=== PATIENT | female | born 2000 | race Two or more races ===

== ENCOUNTER 2021-07-28 21:20 | Emergency (ER) | payer MEDICAID ==
[~2021-07-28] VITALS: Ht 160 cm; Wt 56.4 kg
[2021-07-29] MEDS ORDERED: DEXAMETHASONE 10 MG/ML VIAL PO ONE (00:15)
[2021-07-29] MEDS ORDERED: AMOXICILLIN/POTASSIUM CLAVULANATE 875/125MG TAB PO ONE (00:15)
[2021-07-29] MEDS ORDERED: VISCOUS LIDOCAINE 2% 15 ML UDC MM PRN (00:15)
[2021-07-29] MEDS ORDERED: KETOROLAC 60MG/2ML VIAL IM ONE (00:15)
[2021-07-29 00:32] VITALS: BP 137/94
[2021-07-29] MEDS ORDERED: IBUP-2028 MT (02:22)
[2021-07-29] MEDS ORDERED: AMOX-424 MT (02:22)
== END 2021-07-29 03:02 | disposition home or self-care (01) ==
LOC: ER 21:20
DX: J36 Peritonsillar abscess (principal)
CPT/HCPCS: 10060; 81025; 96372; 99283; J1100; J1885

== ENCOUNTER 2023-08-10 21:48 | Emergency (ER) | payer MEDICAID, OTHER ==
[~2023-08-10] VITALS: Ht 157.5 cm; Wt 59.0 kg
[~2023-08-10 21:48] MED LIST: AMOX-424 MT; IBUP-2028 MT
[2023-08-10 21:51] VITALS: O2SAT 99
[2023-08-11] MEDS ORDERED: KETOROLAC 30MG/ML VIAL IM ONE
[2023-08-11] MEDS ORDERED: METOCLOPRAMIDE HCL 10MG TABLET PO ONE
[2023-08-11 00:18] VITALS: BP 131/86
[2023-08-11] MEDS ORDERED: NAPR-1176 MT (00:52)
[2023-08-11 01:25] VITALS: PULSE 74; RESP 18; TEMP 98.4
== END 2023-08-11 01:29 | disposition home or self-care (01) ==
LOC: ER 21:57
DX: R51.9 Headache, unspecified (principal)
CPT/HCPCS: 81025; 99283; 96372; J8597; J1885; Z7610

== ENCOUNTER 2024-06-09 22:34 | Emergency (ER) | payer MEDICAID, OTHER ==
[~2024-06-09] VITALS: Ht 157.5 cm; Wt 59.0 kg
[~2024-06-09 22:34] MED LIST changes: +NAPR-1176 MT
[2024-06-09 22:49] VITALS: O2SAT 99
[2024-06-09] MEDS: ACETAMINOPHEN 325MG TABLET PO ONE (23:45)
[2024-06-10 02:30] VITALS: BP 110/69; PULSE 85; RESP 18; TEMP 37.22520; O2SAT 99
== END 2024-06-10 02:32 | disposition home or self-care (01) ==
LOC: ER 22:34
DX: N63.0 Unspecified lump in unspecified breast (principal); D64.9 Anemia, unspecified; J02.9 Acute pharyngitis, unspecified
CPT/HCPCS: 76642; 87070; 87430; 99284

== ENCOUNTER 2025-03-16 19:50 | Emergency (ER) | payer SELFPAY ==
[~2025-03-16] VITALS: Ht 157.5 cm; Wt 60.9 kg
[2025-03-16 19:51] VITALS: O2SAT 98
[2025-03-16 20:48] VITALS: BP 124/83; PULSE 83; RESP 16; TEMP 37.1; O2SAT 98
== END 2025-03-16 20:59 | disposition home or self-care (01) ==
LOC: ER 19:50
DX: N63.20 Unspecified lump in the left breast, unspecified quadrant (principal); D64.9 Anemia, unspecified
CPT/HCPCS: 99281